=== PATIENT | female | born 1955 | race Caucasian/White ===

== ENCOUNTER → 2019-08-24 | Outpatient (CLI) | payer OTHER | LOC: CAT 07:27 | PROVIDERS: Internal Medicine | DX: R59.1 Generalized enlarged lymph nodes (principal); J98.4 Other disorders of lung; R91.8 Other nonspecific abnormal finding of lung field ==

== ENCOUNTER → 2020-02-21 | Outpatient (CLI) | payer OTHER ==
[2020-02-21 08:30] LABS: CREATININE 0.9 mg/dL (0.6-1.0)
== END ==
LOC: CAT 07:53
PROVIDERS: Internal Medicine
DX: R91.8 Other nonspecific abnormal finding of lung field (principal); R59.0 Localized enlarged lymph nodes

== ENCOUNTER → 2021-04-06 | Outpatient (CLI) | payer OTHER | LOC: CAT 11:20 | PROVIDERS: ATTEND Internal Medicine | DX: J45.40 Moderate persistent asthma, uncomplicated (principal); R59.0 Localized enlarged lymph nodes; J84.10 Pulmonary fibrosis, unspecified ==